=== PATIENT | male | born 1975 | race Caucasian/White ===

== ENCOUNTER 2017-09-01 08:43 | Emergency (ER) | payer MEDICAID | END 2017-09-01 11:42 | disposition home or self-care (01) | LOC: FTE 08:43 | DX: R30.0 Dysuria (principal); I10 Essential (primary) hypertension | CPT/HCPCS: 87086; 99283 ==

== ENCOUNTER 2018-01-22 19:00 | Emergency (ER) | payer MEDICAID | END 2018-01-22 23:00 | disposition home or self-care (01) | LOC: FTE 19:00 | DX: M47.816 Spondylosis without myelopathy or radiculopathy, lumbar region (principal); I10 Essential (primary) hypertension | CPT/HCPCS: 74176; 99284-25 ==